=== PATIENT | female | born 1975 | race Caucasian/White ===

== ENCOUNTER 2016-11-20 21:47 | Emergency (ER) | payer OTHER ==
[2016-11-20 22:09] VITALS: BP 157/90; PULSE 108; TEMP 98.8; BMI 44.1
[2016-11-21] MEDS ORDERED: OXYCODONE/APAP 5/325MG COMBO TABLET PO ONE (00:38)
--- NOTE | 2016-11-21 00:38 | PDOC ---
History of Present Illness - General Chief Complaint: Abscess Boil Stated Complaint: FEMALE ISSUE Time Seen by Provider: 11/20/16 23:49 History Source: Patient Exam Limitations: No Limitations - History of Present Illness Initial Comments: 11/21/16 04:03 Chief complaint: Abscess Patient is a 41-year-old female with NIDDM that she's had a small pimple to the left suprapubic area that has now gotten worse, swollen, painful and started draining in the waiting room. No fever. Patient otherwise feels well. GENERAL/CONSTITUTIONAL: No fever, weakness. dizziness HEAD, EYES, EARS, NOSE AND THROAT: No change in vision. No ear pain or discharge. No sore throat. CARDIOVASCULAR: No chest pain RESPIRATORY: No shortness of breath or cough GASTROINTESTINAL: No pain, nausea, vomiting, diarrhea or constipation GENITOURINARY: No dysuria MUSCULOSKELETAL: No neck or back pain SKIN: + Abscess NEUROLOGIC: No headache, vertigo, loss of consciousness, or loss of sensation. GENERAL: The patient is awake, alert, and fully oriented, in no acute distress. HEAD: Normal with no signs of trauma. EYES: Pupils equal, round and reactive to light, sclera anicteric, conjunctiva clear. ENT: pharynx: no erythema, no exudate, uvula midline NECK: supple CHEST: clear, nontender, rr ABD: soft, nontender Half centimeter central opening, no draining, with 3 cm area of hard erythema surrounding it, localized EXTREMITIES: Normal range of motion, no edema. NEUROLOGICAL: Normal speech, normal gait. SKIN: Warm, Dry Past History - Past Medical History Allergies/Adverse Reactions: Allergies Allergy/AdvReac Type Severity Reaction Status Date / Time No Known Allergies Allergy Verified 11/20/16 22:06 Home Medications: Ambulatory Orders Metformin HCl [Glucophage] 1,000 mg PO BID 11/20/16 Doxycycline Hyclate 100 mg PO BID #14 capsule 11/21/16 Oxycodone HCl/Acetaminophen [Percocet 5-325 mg Tablet] 1 tab PO Q4H PRN #12 tablet MDD 6 11/21/16 Diabetes: Yes - Psycho/Social/Smoking Cessation Hx Suicidal Ideation: No Smoking History: Current every day smoker Number of Cigarettes Smoked Daily: 15 Information on smoking cessation initiated: Yes 'Breaking Loose' booklet given: 11/20/16 Hx Alcohol Use: No Drug/Substance Use Hx: No *Physical Exam - Vital Signs Last Vital Signs Temp Pulse Resp BP Pulse Ox 98.8 F 108 H 18 157/90 98 11/20/16 22:07 11/20/16 22:07 11/20/16 22:07 11/20/16 22:07 11/20/16 22:07 Procedures - Incision and Drainage I&D Site: Left: Other (suprapubic) Betadine cleansed: Yes Anesthesia: 2% Lidocaine Blade Size: 11 Iodinated Packin/2 in Complications: none Dressing: Yes Progress: 11/21/16 04:09 small amount of sangious fluid Medical Decision Making - Medical Decision Making 11/21/16 04:06 Small abscess, with heart surrounding erythemic area, questionable rounding cellulitis, localized. No fever and patient otherwise appears well. We will do incision and drainage and started on antibiotics *DC/Admit/Observation/Transfer Diagnosis at time of Disposition: Abscess - Discharge Dispostion Disposition: HOME Condition at time of disposition: Stable Admit: No - Prescriptions Prescriptions: Doxycycline Hyclate 100 mg PO BID #14 capsule Oxycodone HCl/Acetaminophen [Percocet 5-325 mg Tablet] 1 tab PO Q4H PRN #12 tablet MDD 6 PRN Reason: Pain - Referrals Referrals: Marshal Devine MD [Primary Care Provider] - - Patient Instructions Printed Discharge Instructions: DI for Incision and Drainage of a Skin Abscess Additional Instructions: Leave packing in for 2 days Take the doxycycline 1 tablet every 12 hours for 7 days Take the Percocet one tablet every 4-6 hours for one to 2 days for pain. If you don't need the Percocet you can take Motrin 600 mg every 6 hours and you can take both as needed Return to the ER if fever or getting worse Followup with your doctor on Friday as scheduled - Post Discharge Activity Work/School Note: Back to Work
[2016-11-21] MEDS ORDERED: OXYCODONE/APAP 5/325MG COMBO TABLET ONE (00:43)
== END 2016-11-21 00:57 | disposition home or self-care (01) ==
LOC: JER 21:47
PROC: 0H97XZZ Drainage of Abdomen Skin, External Approach (ICD-10-PCS; principal; 2016-11-20)
DX: L02.211 Cutaneous abscess of abdominal wall (principal)
CPT/HCPCS: 99281-25

== ENCOUNTER 2018-09-01 15:52 | Emergency (ER) | payer OTHER ==
[2018-09-01 15:59] VITALS: BMI 38.7
--- NOTE | 2018-09-01 16:02 | PDOC ---
Rapid Medical Evaluation Chief Complaint: Abscess Boil Time Seen by Provider: 09/01/18 16:00 Medical Evaluation: Allergies Allergy/AdvReac Type Severity Reaction Status Date / Time No Known Allergies Allergy Verified 09/01/18 15:56 Vital Signs Temp Pulse Resp BP Pulse Ox 99.1 F 113 H 18 126/87 100 09/01/18 15:56 09/01/18 15:56 09/01/18 15:56 09/01/18 15:56 09/01/18 15:56 09/01/18 16:00 I have performed a brief in-person evaluation of this patient. The patient presents with a chief complaint of: left vulva abscess and fever. report had fever of 101F at home Pertinent physical exam findings:A&O x 3. I have ordered the following:cbc, cmp, UA, Ucx The patient will proceed to the ED for further evaluation Discharge Disposition - Diagnosis Abscess - Referrals Referrals: Marshal Devine MD [Primary Care Provider] - - Patient Instructions - Post Discharge Activity
--- NOTE | 2018-09-01 16:39 | PDOC ---
History of Present Illness - General Chief Complaint: Abscess Boil Stated Complaint: PAIN,ABSCESS Time Seen by Provider: 09/01/18 16:00 History Source: Patient Exam Limitations: No Limitations - History of Present Illness Initial Comments: 09/01/18 16:38 The patient is a 43F with a PMH of DM and labial boils who presents to the ER for a possible abscess on her labia. The patient states that she noticed a pimple on her labia 1 week ago. The pimple progressed and grew, becoming more irritated "every time she wiped". She states that the pimple burst a few days ago, but now has progressed with worsening pain and redness throughout her groin. She admits to a fever today with nausea and vomiting but denies chills, dysuria, vaginal discharge, and vaginal bleeding. Past History - Past Medical History Allergies/Adverse Reactions: Allergies Allergy/AdvReac Type Severity Reaction Status Date / Time No Known Allergies Allergy Verified 09/01/18 15:56 Home Medications: Ambulatory Orders Metformin HCl [Glucophage] 1,000 mg PO BID 11/20/16 Doxycycline Hyclate 100 mg PO BID #14 capsule 11/21/16 Oxycodone HCl/Acetaminophen [Percocet 5-325 mg Tablet] 1 tab PO Q4H PRN #12 tablet MDD 6 11/21/16 Doxycycline Hyclate 100 mg PO BID #14 tablet 09/01/18 Naproxen [Naprosyn -] 500 mg PO BID #14 tablet 09/01/18 COPD: No Diabetes: Yes Psychiatric Problems: Yes (DEPRESSION) - Immunization History Immunization Up to Date: No - Suicide/Smoking/Psychosocial Hx Smoking History: Current every day smoker Number of Cigarettes Smoked Daily: 15 Information on smoking cessation initiated: No 'Breaking Loose' booklet given: 11/20/16 Hx Alcohol Use: No Drug/Substance Use Hx: No Review of Systems - Review of Systems Able to Perform ROS?: Yes Comments:: 09/01/18 16:42 GENERAL/CONSTITUTIONAL: Positive for weakness and fatigue. No fever or chills. HEAD, EYES, EARS, NOSE AND THROAT: No change in vision. No ear pain or discharge. No sore throat. CARDIOVASCULAR: No chest pain, palpitations, or lightheadedness. RESPIRATORY: No cough, wheezing, shortness of breath, or hemoptysis. GASTROINTESTINAL: No nausea, vomiting, diarrhea, constipation, or abdominal pain. GENITOURINARY: Positive for pimple/boil on labia. No dysuria, frequency, hematuria, or change in urination. MUSCULOSKELETAL: No joint or muscle swelling or pain. No neck or back pain. SKIN: No rash or lesions. NEUROLOGIC: No headache, numbness, tingling, focal weakness, loss of consciousness, or change in strength/sensation. Is the patient limited Arabic proficient: No *Physical Exam - Vital Signs Last Vital Signs Temp Pulse Resp BP Pulse Ox 99.1 F 113 H 18 126/87 100 09/01/18 15:56 09/01/18 15:56 09/01/18 15:56 09/01/18 15:56 09/01/18 15:56 - Physical Exam Comments: 09/01/18 16:45 GENERAL: Well developed, well nourished. Awake and alert. No acute distress. HEENT: Normocephalic, atraumatic. Hearing grossly normal. Moist mucous membranes. PERRLA, EOMI. No conjunctival pallor. Sclera are non-icteric. NECK: Supple. Full ROM. No JVD. CARDIOVASCULAR: Regular rate and rhythm. No murmurs, rubs, or gallops. PULMONARY: No evidence of respiratory distress. Lungs clear to auscultation bilaterally. No wheezing, rales or rhonchi. ABDOMINAL: Soft. Non-tender. Non-distended. No rebound or guarding. No organomegaly. Normoactive bowel sounds. GENITOURINARY: No CVA tenderness bilaterally. 0.5cm boil noted lateral to L labia majoris, TTP, indurated, with L inguinal LN present. MUSCULOSKELETAL: Normal range of motion at all joints. No bony deformities or tenderness. EXTREMITIES: No cyanosis. No clubbing. No edema. No calf tenderness or swelling. SKIN: Warm and dry. Normal capillary refill. No rashes. No jaundice. NEUROLOGICAL: Alert, awake, appropriate. Cranial nerves 2-12 grossly intact. Normal speech. Gait is normal without ataxia. PSYCHIATRIC: Cooperative. Good eye contact. Appropriate mood and affect. Moderate Sedation - Procedure Monitoring Vital Signs: Procedure Monitoring Vital Signs Temperature 99.1 F 09/01/18 15:56 Pulse Rate 113 H 09/01/18 15:56 Respiratory Rate 18 09/01/18 15:56 Blood Pressure 126/87 09/01/18 15:56 O2 Sat by Pulse Oximetry (%) 100 09/01/18 15:56 Procedures - Incision and Drainage I&D Site: Left: Groin Anesthesia: 1% Lidocaine Blade Size: 11 Attempts: 1 Plain Packing: No Complications: none Dressing: Yes (Sterile gauze with tegaderm.) ED Treatment Course - LABORATORY CBC & Chemistry Diagram: 09/01/18 16:38 09/01/18 16:29 Medical Decision Making - Medical Decision Making 09/01/18 17:56 The patient is a 43F with a PMH of DM who presents to the ER with a boil x 1 week. The abscess was I&D in a sterile fashion with cultures sent. Giving abx, fluids for tachycardia, and IV tylenol for pain control, as well as zofran for nausea. Pt states she feels better. Post I&D, the abscess was soft and no longer fluctuant. Pending UA. *DC/Admit/Observation/Transfer Diagnosis at time of Disposition: Abscess - Discharge Dispostion Disposition: HOME Condition at time of disposition: Stable Decision to Admit order: No - Prescriptions Prescriptions: Doxycycline Hyclate 100 mg PO BID #14 tablet Naproxen [Naprosyn -] 500 mg PO BID #14 tablet - Referrals Referrals: Marshal Devine MD [Primary Care Provider] - Anthony Apodaca MD [Staff Physician] - Hever Martinez MD [Staff Physician] - - Patient Instructions Printed Discharge Instructions: DI for Incision and Drainage of a Skin Abscess Additional Instructions: Please follow up with your primary care physician in 1-3 days. Follow up with a HANDS ASSEMBLER in 1 week. Please return to the ER if you have any signs or symptoms of chest pain, shortness of breath, uncontrollable fever, chills, nausea, vomiting, numbness, tingling, or weakness in any part of your body, changes in vision, or slurred speech. Please take your medications as prescribed. Please return to the ER if symptoms persist, worsen, or new symptoms arise. - Post Discharge Activity Forms/Work/School Notes: Back to Work
[2018-09-01] MEDS ORDERED: ACETAMINOPHEN 1000 MG/100 ML VIAL (NON FORMULARY) IVPB ONE (16:45)
[2018-09-01] MEDS ORDERED: SODIUM CHLORIDE 0.9% 1000 ML INFUS.BAG IV ONE (16:45)
[2018-09-01] MEDS ORDERED: ONDANSETRON 4 MG/2 ML VIAL IVPUSH ONE (16:45)
[2018-09-01] MEDS ORDERED: ONDANSETRON 4 MG/2 ML VIAL ONE (16:58)
[2018-09-01] MEDS ORDERED: ACETAMINOPHEN INJECTION 100 ML IVPB ONE (16:58)
--- NOTE | 2018-09-01 17:18 | PDOC ---
Attending Attestation - Resident Resident Name: Gregorio Quesada - ED Attending Attestation I have performed the following: I have examined & evaluated the patient, The case was reviewed & discussed with the resident, I agree w/resident's findings & plan, Exceptions are as noted - HPI HPI: 09/01/18 17:22 The patient is a 43 year old female, with a significant PMH of DM and labial abscess who presents to the emergency department with a pimple on her left labia for the past week. Patient states that the pimple popped a few days ago after wiping but is having worsening pain and associated left groin pain. Patient admits to having a fever, nausea, and 1 episode of NBNB vomiting at home. The patient denies chest pain, shortness of breath, headache and dizziness. Denies abd pain, chills, diarrhea and constipation. Denies dysuria, frequency, urgency and hematuria. Denies focal weakness/numbness Allergies: NKA Past surgical history: Social history: No reported - Physicial Exam PE: 09/01/18 17:24 GENERAL: Awake, alert, and fully oriented, in no acute distress, non toxic appearance EYES: Sclera anicteric, conjunctiva clear ENT: Oropharynx clear without exudates. Moist mucosa LUNGS: Breath sounds equal, clear to auscultation bilaterally. No wheezes, and no crackles HEART: Regular rate and rhythm, normal S1 and S2, no murmurs, rubs or gallops ABDOMEN: Soft, nontender, normoactive bowel sounds. No guarding, no rebound. No masses : L inferior external labia with 2x2cm area of tenderness, induration, fluctuance, and erythema with pinpoint opening with purulent material, no active drainage. +palpable 1cm tender L groin lymph node. EXTREMITIES: Normal range of motion, no edema. No cords, erythema, or tenderness NEUROLOGICAL: Normal speech, cranial nerves intact, equal strength and sensation b/l SKIN: as noted above - Medical Decision Making 09/01/18 17:29 43yo F presents to the ED with L labial abscess and reactive L groin LNs. Pt tachycardic with low grade temp to 99.1. Plan to I&D abscess and cover pt with abx.
[2018-09-01 17:23] LABS: BASO % 0.5 % (0-2.0); EOS % 0.6 % (0-4.5); HEMATOCRIT 39.3 % (32.4-45.2); HEMOGLOBIN 13.9 GM/dL (10.7-15.3); LYMPH % 15.6 % (8-40); MCH 32.1 pg (25.7-33.7); MCHC 35.5 g/dl (32.0-36.0); MEAN CELL VOLUME 90.4 fl (80-96); MEAN PLT VOLUME 9.2 fl (7.5-11.1); MONO % 5.5 % (3.8-10.2); NEUT % 77.8 % (42.8-82.8); PLATELET COUNT 236 K/MM3 (134-434); RBC 4.35 M/mm3 (3.60-5.2); RDW 13.5 % (11.6-15.6)
[2018-09-01] MEDS ORDERED: DOXYCYCLINE HYCLATE 100 MG CAPSULE PO ONE ×2 (17:54→18:51)
[2018-09-01 18:35] LABS: ALBUMIN 3.6 g/dl (3.4-5.0); ALK PHOS 107 U/L (45-117); ANION GAP 9 MMOL/L (8-16); BILIRUBIN,TOTAL 0.4 mg/dL (0.2-1); BLOOD UREA NITROGEN 9 mg/dL (7-18); CALCIUM 8.4 mg/dL (8.5-10.1); CHLORIDE 103 mmol/L (98-107); CO2 23 mmol/L (21-32); CREATININE 0.6 mg/dL (0.55-1.3); GLUCOSE,RANDOM 219 mg/dL (74-106); POTASSIUM 4.1 mmol/L (3.5-5.1); SGOT/AST 9 U/L (15-37); SGPT/ALT 28 U/L (13-61); SODIUM 135 mmol/L (136-145); TOT PROT 6.9 g/dl (6.4-8.2)
[2018-09-01 19:11] LABS: URINE APPEARANCE CLEAR; URINE BILIRUBIN NEGATIVE (<2.0 mg/dL); URINE COLOR YELLOW; URINE GLUCOSE (UA) NEGATIVE (NEGATIVE); URINE KETONE NEGATIVE (NEGATIVE); URINE LEUK ESTERASE NEGATIVE (NEGATIVE); URINE NITRITE NEGATIVE (NEGATIVE); URINE PROTEIN NEGATIVE (NEGATIVE)
[2018-09-01 19:18] VITALS: PULSE 96; TEMP 98.1
[2018-09-01 19:23] VITALS: BP 110/72
[2018-09-01 19:28] LABS: EPI CELLS RARE /HPF (FEW); URINE MUCUS RARE
== END 2018-09-01 20:08 | disposition home or self-care (01) ==
LOC: JER 15:52
PROC: 0U9MX0Z Drainage of Vulva with Drainage Device, External Approach (ICD-10-PCS; principal; 2018-09-01)
DX: N76.4 Abscess of vulva (principal); E11.9 Type 2 diabetes mellitus without complications
CPT/HCPCS: 36415; 80053; 81003; 81015; 84703; 85025; 87070; 87086; 87186; 87205; 99283-25; J0131; J7030

== ENCOUNTER 2022-06-05 19:10 | Emergency (ER) | payer OTHER ==
[2022-06-05 19:22] VITALS: BP 109/75; PULSE 82; RESP 18; TEMP 97; BMI 39.9
[2022-06-05] MEDS ORDERED: predniSONE 20 MG TABLET (UD) PO ONE (20:23)
[2022-06-05] MEDS ORDERED: ACETAMINOPHEN 500 MG TABLET (FP) PO ONE (20:23)
[2022-06-05] MEDS ORDERED: diazePAM 5 MG TABLET PO ONE (20:23)
[2022-06-05] MEDS ORDERED: KETOROLAC TROMETHAMINE 30 MG/1 ML VIAL IM ONE (20:23)
[2022-06-05] MEDS ORDERED: diazePAM 5 MG TABLET ONE (20:28)
[2022-06-05] MEDS ORDERED: ACETAMINOPHEN 500 MG TABLET (FP) ONE (20:28)
[2022-06-05] MEDS ORDERED: KETOROLAC TROMETHAMINE 30 MG/1 ML VIAL ONE (20:28)
[2022-06-05] MEDS ORDERED: predniSONE 20 MG TABLET (UD) ONE (20:29)
== END 2022-06-05 20:38 | disposition home or self-care (01) ==
LOC: JERFT 19:10 → JER 19:10 → JERFT 20:38
PROC: 3E0233Z Introduction of Anti-inflammatory into Muscle, Percutaneous Approach (ICD-10-PCS; principal; 2022-06-05)
DX: M54.31 Sciatica, right side (principal)
CPT/HCPCS: 99284-25

== ENCOUNTER 2023-06-19 11:55 | Emergency (ER) | payer OTHER ==
[2023-06-19 12:18] VITALS: BMI 41.5
[2023-06-19] MEDS ORDERED: ACETAMINOPHEN 1000 MG/100 ML BAG IVPB ONE (13:25)
[2023-06-19 13:56] LABS: BASO % 0.5 % (0-2.0); HEMATOCRIT 38.5 % (32.4-45.2); HEMOGLOBIN 13.1 GM/dL (10.7-15.3); LYMPH % 18.6 % (8-40); MCH 29.3 pg (25.7-33.7); MCHC 33.9 g/dl (32.0-36.0); MEAN CELL VOLUME 86.2 fl (80-96); MEAN PLT VOLUME 9.2 fl (7.5-11.1); NEUT % 74.9 % (42.8-82.8); PLATELET COUNT 264 10^3/uL (134-434); RBC 4.47 M/mm3 (3.60-5.2); RDW 14.1 % (11.6-15.6); WHITE BLOOD COUNT 10.9 K/mm3 (4.0-10.0)
[2023-06-19 14:01] LABS: INR 1.1 (0.83-1.09); PROTHROMBIN TIME (PATIENT) 12.8 SEC (9.7-13.0)
[2023-06-19 14:03] LABS: ACTIVATED PTT 25.9 SECONDS (25.2-36.5)
[2023-06-19] MEDS ORDERED: ACETAMINOPHEN INJECTION 100 ML IVPB ONE (14:05)
[2023-06-19 14:21] LABS: CHLORIDE 105 mmol/L (98-107); SODIUM 136 mmol/L (136-145)
[2023-06-19 14:23] LABS: CALCIUM 9.2 mg/dL (8.5-10.1)
[2023-06-19 14:24] LABS: ALBUMIN 3.3 g/dl (3.4-5.0); BLOOD UREA NITROGEN 11.2 mg/dL (7-18); CO2 25 mmol/L (21-32); GLUCOSE,RANDOM 210 mg/dL (74-106); MAGNESIUM 1.8 mg/dL (1.8-2.4)
[2023-06-19 14:26] LABS: SGPT/ALT 34 U/L (13-61)
[2023-06-19 14:27] LABS: CREATININE 0.7 mg/dL (0.55-1.3); SGOT/AST 52 U/L (15-37)
[2023-06-19 14:28] LABS: BILIRUBIN,TOTAL 0.6 mg/dL (0.2-1); TOT PROT 7.1 g/dl (6.4-8.2)
[2023-06-19 14:29] LABS: ALK PHOS 86 U/L (45-117)
[2023-06-19] MEDS: ALBUTEROL SO4 2.5/IPRATROPIUM 0.5 INH SOL 3 ML VIAL.NEB. NEB SCH ×4 (14:30→16:02)
[2023-06-19 14:36] LABS: ANION GAP 7 MMOL/L (8-16); POTASSIUM 6.7 mmol/L (3.5-5.1)
[2023-06-19] MEDS ORDERED: methylPREDNISolone NA SUCC 125 MG/2 ML VIAL IVPB ONE (14:43)
[2023-06-19] MEDS ORDERED: methylPREDNISolone NA SUCC 125 MG/2 ML VIAL ONE (14:54)
[2023-06-19 16:36] LABS: POTASSIUM 4.7 mmol/L (3.5-5.1)
[2023-06-19 16:39] LABS: ALBUMIN 3.3 g/dl (3.4-5.0); BLOOD UREA NITROGEN 9.6 mg/dL (7-18)
[2023-06-19 16:41] LABS: CREATININE 0.8 mg/dL (0.55-1.3)
[2023-06-19 16:43] LABS: BILIRUBIN,TOTAL 0.4 mg/dL (0.2-1); TOT PROT 6.6 g/dl (6.4-8.2)
[2023-06-19 18:25] VITALS: BP 104/67; PULSE 101; RESP 18; TEMP 97.7
== END 2023-06-19 18:15 | disposition home or self-care (01) ==
LOC: JER 11:55
PROC: 3E033NZ Introduction of Analgesics, Hypnotics, Sedatives into Peripheral Vein, Percutaneous Approach (ICD-10-PCS; principal; 2023-06-19)
PROC: 3E033GC Introduction of Other Therapeutic Substance into Peripheral Vein, Percutaneous Approach (ICD-10-PCS; 2023-06-19)
PROC: 3E0F7GC Introduction of Other Therapeutic Substance into Respiratory Tract, Via Natural or Artificial Opening (ICD-10-PCS; 2023-06-19)
DX: R06.02 Shortness of breath (principal); R05.9 Cough, unspecified; R53.81 Other malaise; R07.89 Other chest pain; R11.0 Nausea; R06.09 Other forms of dyspnea; R09.3 Abnormal sputum; R06.2 Wheezing; Z20.822 Contact with and (suspected) exposure to COVID-19
CPT/HCPCS: 0241U-QW; 36415; 71046-TC-FY; 80053; 83735; 84484; 85025; 85379; 85610; 85730; 93005; 93010; 99285-25

== ENCOUNTER 2025-05-20 21:41 | Emergency (ER) | payer OTHER ==
[2025-05-20 21:58] VITALS: RESP 18; BMI 40.6
[2025-05-20] MEDS ORDERED: HALOPERIDOL LACTATE 5 MG/ML ONE (23:13)
[2025-05-20] MEDS ORDERED: LORazepam 2 MG/ML SDV VIAL ONE (23:13)
[2025-05-20] MEDS: HALOPERIDOL LACTATE 5 MG/ML IM ONE (23:28)
[2025-05-21 01:22] VITALS: TEMP 97.7
[2025-05-21 04:05] LABS: BG HCT 39.0 % (32.4-45.2); VENOUS BASE EXCESS -3.6 mmol/L (-2-2); VENOUS O2 SATURATION 92.1 % (70-80); VENOUS PCO2 37.4 mmHg (38-52); VENOUS PH 7.37 (7.310-7.410)
[2025-05-21 04:28] LABS: ABSOLUTE IMMATURE GRANULOCYTES 0.02 x10^3/uL (0.0-0.031); BASOPHILS # 0.04 x10^3/uL (0.01-0.08); EOSINOPHIL % 0.6 % (0.7-5.8); EOSINOPHILS # 0.05 x10^3/uL (0.04-0.36); MCHC 31.4 g/dl (32.2-35.5); MEAN CELL VOLUME 90.9 fl (79.4-94.8); MEAN PLT VOLUME 10.7 fl (9.4-12.3); MONOCYTE # 0.47 x10^3/uL (0.24-0.86); MONOCYTE % 5.3 % (4.7-12.5); RDW 12.5 % (12.2-17.1)
[2025-05-21 04:52] LABS: GLUCOSE,RANDOM 151 mg/dL (74-106); TOT PROT 6.8 g/dl (6.4-8.2)
[2025-05-21 04:53] LABS: CO2 23 mmol/L (21-32)
[2025-05-21 04:55] LABS: ALK PHOS 80 U/L (40-150)
[2025-05-21 04:57] LABS: SGOT/AST 26 U/L (5-34); SGPT/ALT 28 U/L (0-55)
[2025-05-21 04:58] LABS: CREATININE 0.58 mg/dL (0.55-1.3)
[2025-05-21 05:12] LABS: HCV DIAGNOSTIC IN-HOUSE W/RFLX NON-REACTIVE (NONREACTIVE); HIV INTERPRETATION NEGATIVE (NEGATIVE)
[2025-05-21 06:09] VITALS: BP 106/57; PULSE 85
[2025-05-21 06:56] LABS: URINE APPEARANCE CLEAR; URINE BILIRUBIN NEGATIVE (NEGATIVE); URINE COLOR YELLOW; URINE GLUCOSE (UA) NEGATIVE (NEGATIVE); URINE KETONE NEGATIVE (NEGATIVE); URINE LEUK ESTERASE NEGATIVE (NEGATIVE); URINE NITRITE NEGATIVE (NEGATIVE); URINE PROTEIN NEGATIVE (NEGATIVE); URINE UROBILINOGEN 0.2 mg/dL (0.2-1.0)
[2025-05-21 07:36] LABS: COCAINE, UR NEGATIVE (NEGATIVE)
[2025-05-21 07:37] LABS: METHADONE, UR NEGATIVE (NEGATIVE); OPIATES, URI NEGATIVE (NEGATIVE); PHENCYCLIDINE,URINE NEGATIVE (NEGATIVE); URINE AMPHETAMINES NEGATIVE (NEGATIVE); URINE BARBITURATES NEGATIVE (NEGATIVE); URINE BENZODIAZEPINES NEGATIVE (NEGATIVE)
[2025-05-21] MEDS ORDERED: AMOX TR/POT CLAV 875MG/125MG TABLETS (FP) ONE (09:21)
[2025-05-21] MEDS: AMOX TR/POT CLAV 875MG/125MG TABLETS (FP) PO ONE (09:25)
== END 2025-05-21 09:20 | disposition home or self-care (01) ==
LOC: JER 21:41
PROC: 3E023GC Introduction of Other Therapeutic Substance into Muscle, Percutaneous Approach (ICD-10-PCS; principal; 2025-05-20)
PROC: 3E023GC Introduction of Other Therapeutic Substance into Muscle, Percutaneous Approach (ICD-10-PCS; 2025-05-20)
PROC: 3E023GC Introduction of Other Therapeutic Substance into Muscle, Percutaneous Approach (ICD-10-PCS; 2025-05-20)
DX: N61.0 Mastitis without abscess (principal); R45.851 Suicidal ideations; N63.10 Unspecified lump in the right breast, unspecified quadrant
CPT/HCPCS: 36415; 76604; 80053; 80307; 81003; 82803; 82962; 83735; 84443; 84703; 85025; 86803; 87086; 87389; 93005; 93010; 99285-25